=== PATIENT | female | born 1990 | race American Indian/Alaskan Native ===

== ENCOUNTER 2017-02-06 12:16 | Emergency (ER) | payer SELFPAY ==
[2017-02-06 14:59] LABS: Bacteria,Urine 1+ /HPF (Negative); Bilirubin,Urine NEG (Negative); Blood,Urine NEG (Negative); Ketones,Urine NEG (Negative); Leukocyte Esterase,Urine NEG (Negative); Mucus,Urine 1+ /HPF; Nitrite,Urine NEG (Negative); Protein,Urine <15 mg/dL mg/dL (Negative); Urobilinogen,Urine < 2.0 mg/dL (<2.0); WBC,Urine < 1.0 /HPF (0.0-6.0)
[2017-02-06] MEDS ORDERED: ZITHROMAX PO ONE (18:31)
[2017-02-06] MEDS ORDERED: XYLOCAINE 1% MPF 5 mL INFILTRATI ONE (18:31)
[2017-02-06] MEDS ORDERED: ROCEPHIN IM ONE (18:31)
--- NOTE | 2017-02-06 20:16 | Emergency Department Report ---
Entered by NACHO GAFFNEY, acting as scribe for JIN PETERSON PA. ED Female HPI - General Chief complaint: Urogenital-Female Stated complaint: POSS UTI Source: patient Mode of arrival: Ambulatory Limitations: No Limitations - History of Present Illness Initial comments: 26 year old female presents to the ED for evaluation of lower abdominal pain and associated urinary frequency and vaginal discharge for 2 weeks. She reports abdominal pain with urination. She also notes small amount of vaginal bleeding today but indicates it could be her normal menstrual bleeding. Patient reports only 1 sexual partner in previous month but notes she does not use protection with partner. Patient was seen at a clinic after initial onset; reports she was diagnosed and treated for bacterial vaginosis. Denies fever, chills, nausea, and vomiting. MD Complaint: vaginal discharge, other (urinary frequency, suprapubic abdominal pain) Onset/Timin -: week(s) Location: suprapubic Severity: moderate Consistency: constant Improves with: none Worsens with: urination Are you Now?: No Associated Symptoms: vaginal discharge, vaginal bleeding (small amount today, possible normal menstrual cycle), abdominal pain (suprapubic). denies: nausea/ vomiting, fever/chills, dysuria, hematuria - Related Data Sexually active: Yes (1 sexual partner in last month, does not use protection with partner) Previous Rx's Medication Instructions Recorded Last Taken Type Acetaminophen/Codeine 1 tab PO QHS PRN #4 tab 01/15/15 Unknown Rx [Acetaminophen-Codeine #3 TAB] Benzocaine [Orajel Liquid 20%] 1 ml MM Q6HR #1 bottle 01/15/15 Unknown Rx Ibuprofen [Motrin] 800 mg PO Q8H PRN #20 tablet 01/15/15 Unknown Rx Penicillin Vk [Veetids TAB] 500 mg PO QID #40 tablet 01/15/15 Unknown Rx Fluticasone [Flonase] 1 spray NS QDAY #1 bottle 09/06/15 Unknown Rx Ibuprofen [Motrin 800 MG tab] 800 mg PO Q8HR PRN #30 tablet 09/06/15 Unknown Rx guaiFENesin/CODEINE [Robitussin AC] 5 ml PO Q6HR #120 ml 09/06/15 Unknown Rx Allergies Allergy/AdvReac Type Severity Reaction Status Date / Time No Known Allergies Allergy Verified 09/06/15 12:41 ED Review of Systems Comment: All other systems reviewed and negative Constitutional: denies: chills, fever Gastrointestinal: abdominal pain (suprapubic). denies: nausea, vomiting Genitourinary: frequency, discharge, other (vaginal bleeding). denies: dysuria , hematuria ED Past Medical Hx - Past Medical History Previous Medical History?: No - Surgical History Past Surgical History?: No - Social History Smoking Status: Never Smoker Substance Use Type: Non Opiate Pain - Medications Home Medications: Home Medications Medication Instructions Recorded Confirmed Last Taken Type Acetaminophen/Codeine 1 tab PO QHS PRN #4 tab 01/15/15 Unknown Rx [Acetaminophen-Codeine #3 TAB] Benzocaine [Orajel Liquid 20%] 1 ml MM Q6HR #1 bottle 01/15/15 Unknown Rx Ibuprofen [Motrin] 800 mg PO Q8H PRN #20 tablet 01/15/15 Unknown Rx Penicillin Vk [Veetids TAB] 500 mg PO QID #40 tablet 01/15/15 Unknown Rx Fluticasone [Flonase] 1 spray NS QDAY #1 bottle 09/06/15 Unknown Rx Ibuprofen [Motrin 800 MG tab] 800 mg PO Q8HR PRN #30 tablet 09/06/15 Unknown Rx guaiFENesin/CODEINE [Robitussin AC] 5 ml PO Q6HR #120 ml 09/06/15 Unknown Rx ED Physical Exam - General Limitations: No Limitations General appearance: alert, in no apparent distress - Head Head exam: Present: atraumatic, normocephalic - GI/Abdominal GI/Abdominal exam: Present: soft. Absent: distended, tenderness, guarding, rebound - External exam: Present: normal external exam. Absent: lesions Speculum exam: Present: vaginal bleeding. Absent: vaginal discharge Bi-manual exam: Present: cervical motion tendernes (mild anterior cervical motion tenderness), other (roll scale man present during exam). Absent: adnexal tenderness, adnexal mass, uterine enlargement, uterine tenderness - Neurological Exam Neurological exam: Present: alert, oriented X3 - Psychiatric Psychiatric exam: Present: normal affect, normal mood - Skin Skin exam: Present: warm, dry, intact. Absent: rash ED Course Vital Signs 02/06/17 12:28 Temperature 97.9 F Pulse Rate 98 H Respiratory 18 Rate Blood Pressure 121/72 O2 Sat by Pulse 100 Oximetry ED Disposition Clinical Impression: Urinary frequency, Vaginitis Disposition: DISCHARGED TO HOME OR SELFCARE Is pt being admited?: No Does the pt Need Aspirin: No Condition: Stable Instructions: Dysuria (ED) Additional Instructions: Please drink plenty of fluids follow up with her primary care provider he can take Tylenol or Motrin for pain. Referrals: PRIMARY CARE, [Primary Care Provider] - 3-5 Days Forms: Work/School Release Form(ED) This documentation as recorded by the GULSHAN mays REBEKAH,accurately reflects the service I personally performed and the decisions made by me,JIN PETERSON PA.
[2017-02-06 21:21] VITALS: BP 124/87
== END 2017-02-06 20:12 | disposition home or self-care (01) ==
LOC: ED 12:16
DX: R35.0 Frequency of micturition (principal); N76.0 Acute vaginitis
CPT/HCPCS: 81001; 81025; 87210; 87591; 96372; 99284; J0696

== ENCOUNTER 2017-12-12 05:08 | Emergency (ER) | payer SELFPAY ==
[2017-12-12 06:55] LABS: Basophils % (Auto) 0.5 % (0.0-1.8); Eosinophils % (Auto) 0.3 % (0.0-4.3); Hematocrit 38.3 % (30.3-42.9); Hemoglobin 12.4 gm/dl (10.1-14.3); Lymphocytes # (Auto) 1.6 K/mm3 (1.2-5.4); Mean Corpuscular HGB Conc 32 % (30-34); Mean Corpuscular Hemoglobin 27 pg (28-32); Mean Corpuscular Volume 84 fl (79-97); Monocytes # (Auto) 0.7 K/mm3 (0.0-0.8); Monocytes % (Auto) 9.5 % (0.0-7.3); Platelet Count 327 K/mm3 (140-440); Red Blood Count 4.59 M/mm3 (3.65-5.03); Red Cell Distribution Width 16.3 % (13.2-15.2)
[2017-12-12 07:17] LABS: Alanine Aminotransferase 11 units/L (7-56); Albumin 4.1 g/dL (3.9-5); BUN/Creatinine Ratio 14; Blood Urea Nitrogen 11 mg/dL (7-17); Hemolysis Index 11
[2017-12-12 08:21] LABS: Color,Urine Yellow (Yellow)
[2017-12-12 08:22] LABS: Bilirubin,Urine NEG (Negative); Blood,Urine NEG (Negative); Mucus,Urine 2+ /HPF; Nitrite,Urine NEG (Negative); Protein,Urine <15 mg/dL mg/dL (Negative)
[2017-12-12 19:47] LABS: HCG Qualitative,Urine Negative (Negative)
[2017-12-12] MEDS ORDERED: NACL 0.9% 1000 ML 1,000 ML IV ONE (20:01)
--- NOTE | 2017-12-12 20:06 | Emergency Department Report ---
ED Dizziness HPI - General Chief Complaint: Dizziness Stated Complaint: DIZZINESS Time Seen by Provider: 12/12/17 19:14 Source: patient Mode of arrival: Ambulatory Limitations: No Limitations - History of Present Illness Initial Comments: 27 year old female with no significant past medical or surgical history presents to the hospital complaining waking up at 4 AM with dizziness. Patient felt lightheaded like she was on a pass out. As per triage she complained of chills and fever but she denies upon my history taking. She states she did have recent URI symptoms that has since improved and does report some decreased by mouth intake. She denies chest pain, shortness of breath, nausea, vomiting, diarrhea, abdominal pain, or dysuria. - Related Data Previous Rx's Medication Instructions Recorded Last Taken Type Acetaminophen/Codeine 1 tab PO QHS PRN #4 tab 01/15/15 Unknown Rx [Acetaminophen-Codeine #3 TAB] Benzocaine [Orajel Liquid 20%] 1 ml MM Q6HR #1 bottle 01/15/15 Unknown Rx Ibuprofen [Motrin] 800 mg PO Q8H PRN #20 tablet 01/15/15 Unknown Rx Penicillin Vk [Veetids TAB] 500 mg PO QID #40 tablet 01/15/15 Unknown Rx Fluticasone [Flonase] 1 spray NS QDAY #1 bottle 09/06/15 Unknown Rx Ibuprofen [Motrin 800 MG tab] 800 mg PO Q8HR PRN #30 tablet 09/06/15 Unknown Rx guaiFENesin/CODEINE [Robitussin AC] 5 ml PO Q6HR #120 ml 09/06/15 Unknown Rx Allergies Allergy/AdvReac Type Severity Reaction Status Date / Time No Known Allergies Allergy Verified 09/06/15 12:41 ED Review of Systems ROS: Stated complaint: DIZZINESS Other details as noted in HPI Comment: All other systems reviewed and negative Other: Constitutional: No fevers chills Eyes: No eye pain visual changes ENT: No ear pain or throat pain Neck: Denies pain Respiratory: Denies cough wheezing shortness of breath Cardiovascular: Denies chest pain, palpitations GI: Denies abdominal pain, nausea, vomiting, diarrhea : Denies dysuria Skin: Denies rash, lesions, erythema Neurologic: Denies headache, numbness, weakness Psychiatric: Denies suicidal ideation, hallucinations ED Past Medical Hx - Past Medical History Previous Medical History?: No - Surgical History Past Surgical History?: No - Social History Smoking Status: Never Smoker Substance Use Type: None - Medications Home Medications: Home Medications Medication Instructions Recorded Confirmed Last Taken Type Acetaminophen/Codeine 1 tab PO QHS PRN #4 tab 01/15/15 Unknown Rx [Acetaminophen-Codeine #3 TAB] Benzocaine [Orajel Liquid 20%] 1 ml MM Q6HR #1 bottle 01/15/15 Unknown Rx Ibuprofen [Motrin] 800 mg PO Q8H PRN #20 tablet 01/15/15 Unknown Rx Penicillin Vk [Veetids TAB] 500 mg PO QID #40 tablet 01/15/15 Unknown Rx Fluticasone [Flonase] 1 spray NS QDAY #1 bottle 09/06/15 Unknown Rx Ibuprofen [Motrin 800 MG tab] 800 mg PO Q8HR PRN #30 tablet 09/06/15 Unknown Rx guaiFENesin/CODEINE [Robitussin AC] 5 ml PO Q6HR #120 ml 09/06/15 Unknown Rx ED Physical Exam - General Limitations: No Limitations - Other Other exam information: General: No limitations, patient is alert in no acute distress Head exam: Atraumatic, normocephalic Eyes exam: Normal appearance ENT: Moist mucous membrane Neck exam: Normal inspection, full range of motion, no meningismus nontender Respiratory exam: Clear to auscultation bilateral, no wheezes, rales, crackles Cardiovascular: Normal rate and rhythm, normal heart sounds Abdomen: Soft, nondistended, and nontender, with normal bowel sounds, no rebound, or guarding Extremity: Full range of motion normal inspection no deformity Back: Normal Inspection, full range of motion, no tenderness Neurologic: Alert, oriented x3, cranial nerves intact, no motor or sensory deficit Psychiatric: normal affect, normal mood Skin: Warm, dry, intact ED Course Vital Signs 12/12/17 12/12/17 12/12/17 05:30 05:40 17:01 Temperature 97.7 F 97.7 F 98.1 F Pulse Rate 89 83 90 Respiratory 18 17 18 Rate Blood Pressure 126/83 126/83 Blood Pressure 134/78 [Right] O2 Sat by Pulse 100 99 98 Oximetry - Reevaluation(s) Reevaluation #1: 12/12/17 22:01 Patient received 1 L normal saline even with orthostatics being negative. When questioned about how she fell patient states she just feels weak. There are no focal deficits. There are no acute laboratory or vital signs abnormality with exception of mild elevation in TSH. Follow-up will be recommended ED Medical Decision Making - Lab Data Result diagrams: 12/12/17 06:39 12/12/17 06:39 Lab Results 12/12/17 12/12/17 12/12/17 Range/Units 06:39 06:39 06:39 WBC 7.5 (4.5-11.0) K/mm3 RBC 4.59 (3.65-5.03) M/mm3 Hgb 12.4 (10.1-14.3) gm/dl Hct 38.3 (30.3-42.9) % MCV 84 (79-97) fl MCH 27 L (28-32) pg MCHC 32 (30-34) % RDW 16.3 H (13.2-15.2) % Plt Count 327 (140-440) K/mm3 Lymph % (Auto) 21.0 (13.4-35.0) % [place] % (Auto) 9.5 H (0.0-7.3) % Eos % (Auto) 0.3 (0.0-4.3) % Baso % (Auto) 0.5 (0.0-1.8) % Lymph # 1.6 (1.2-5.4) K/mm3 [place] # 0.7 (0.0-0.8) K/mm3 Eos # 0.0 (0.0-0.4) K/mm3 Baso # 0.0 (0.0-0.1) K/mm3 Seg Neutrophils % 68.7 (40.0-70.0) % Seg Neutrophils # 5.2 (1.8-7.7) K/mm3 Sodium 138 (137-145) mmol/L Potassium 4.2 (3.6-5.0) mmol/L Chloride 99.7 (98-107) mmol/L Carbon Dioxide 24 (22-30) mmol/L Anion Gap 19 mmol/L BUN 11 (7-17) mg/dL Creatinine 0.8 (0.7-1.2) mg/dL Estimated GFR > 60 ml/min BUN/Creatinine Ratio 14 % Glucose 107 H (65-100) mg/dL Calcium 9.0 (8.4-10.2) mg/dL Total Bilirubin < 0.20 (0.1-1.2) mg/dL AST 12 (5-40) units/L ALT 11 (7-56) units/L Alkaline Phosphatase 85 (35-129) units/L Total Protein 7.7 (6.3-8.2) g/dL Albumin 4.1 (3.9-5) g/dL Albumin/Globulin Ratio 1.1 % TSH 5.030 H (0.270-4.200) mlU/mL Free T4 (0.76-1.46) ng/dL Thyroxine (T4) (4.0-12.0) ug/dL Urine Color (Yellow) Urine Turbidity (Clear) Urine pH (5.0-7.0) Ur Specific [place] (1.003-1.030) Urine Protein (Negative) mg/dL Urine Glucose (UA) (Negative) mg/dL Urine Ketones (Negative) mg/dL Urine Blood (Negative) Urine Nitrite (Negative) Urine Bilirubin (Negative) Urine Urobilinogen (<2.0) mg/dL Ur Leukocyte Esterase (Negative) Urine WBC (Auto) (0.0-6.0) /HPF Urine RBC (Auto) (0.0-6.0) /HPF U Epithel Cells (Auto) (0-13.0) /HPF Urine Mucus /HPF Urine HCG, Qual (Negative) 12/12/17 12/12/17 12/12/17 Range/Units 06:49 06:49 07:20 WBC (4.5-11.0) K/mm3 RBC (3.65-5.03) M/mm3 Hgb (10.1-14.3) gm/dl Hct (30.3-42.9) % MCV (79-97) fl MCH (28-32) pg MCHC (30-34) % RDW (13.2-15.2) % Plt Count (140-440) K/mm3 Lymph % (Auto) (13.4-35.0) % [place] % (Auto) (0.0-7.3) % Eos % (Auto) (0.0-4.3) % Baso % (Auto) (0.0-1.8) % Lymph # (1.2-5.4) K/mm3 [place] # (0.0-0.8) K/mm3 Eos # (0.0-0.4) K/mm3 Baso # (0.0-0.1) K/mm3 Seg Neutrophils % (40.0-70.0) % Seg Neutrophils # (1.8-7.7) K/mm3 Sodium (137-145) mmol/L Potassium (3.6-5.0) mmol/L Chloride (98-107) mmol/L Carbon Dioxide (22-30) mmol/L Anion Gap mmol/L BUN (7-17) mg/dL Creatinine (0.7-1.2) mg/dL Estimated GFR ml/min BUN/Creatinine Ratio % Glucose (65-100) mg/dL Calcium (8.4-10.2) mg/dL Total Bilirubin (0.1-1.2) mg/dL AST (5-40) units/L ALT (7-56) units/L Alkaline Phosphatase (35-129) units/L Total Protein (6.3-8.2) g/dL Albumin (3.9-5) g/dL Albumin/Globulin Ratio % TSH (0.270-4.200) mlU/mL Free T4 0.99 (0.76-1.46) ng/dL Thyroxine (T4) 6.6 (4.0-12.0) ug/dL Urine Color Yellow (Yellow) Urine Turbidity Clear (Clear) Urine pH 6.0 (5.0-7.0) Ur Specific [place] 1.024 (1.003-1.030) Urine Protein <15 mg/dl (Negative) mg/dL Urine Glucose (UA) Neg (Negative) mg/dL Urine Ketones Neg (Negative) mg/dL Urine Blood Neg (Negative) Urine Nitrite Neg (Negative) Urine Bilirubin Neg (Negative) Urine Urobilinogen 2.0 (<2.0) mg/dL Ur Leukocyte Esterase Tr (Negative) Urine WBC (Auto) 1.0 (0.0-6.0) /HPF Urine RBC (Auto) 2.0 (0.0-6.0) /HPF U Epithel Cells (Auto) 4.0 (0-13.0) /HPF Urine Mucus 2+ /HPF Urine HCG, Qual (Negative) 12/12/17 Range/Units 07:23 WBC (4.5-11.0) K/mm3 RBC (3.65-5.03) M/mm3 Hgb (10.1-14.3) gm/dl Hct (30.3-42.9) % MCV (79-97) fl MCH (28-32) pg MCHC (30-34) % RDW (13.2-15.2) % Plt Count (140-440) K/mm3 Lymph % (Auto) (13.4-35.0) % [place] % (Auto) (0.0-7.3) % Eos % (Auto) (0.0-4.3) % Baso % (Auto) (0.0-1.8) % Lymph # (1.2-5.4) K/mm3 [place] # (0.0-0.8) K/mm3 Eos # (0.0-0.4) K/mm3 Baso # (0.0-0.1) K/mm3 Seg Neutrophils % (40.0-70.0) % Seg Neutrophils # (1.8-7.7) K/mm3 Sodium (137-145) mmol/L Potassium (3.6-5.0) mmol/L Chloride (98-107) mmol/L Carbon Dioxide (22-30) mmol/L Anion Gap mmol/L BUN (7-17) mg/dL Creatinine (0.7-1.2) mg/dL Estimated GFR ml/min BUN/Creatinine Ratio % Glucose (65-100) mg/dL Calcium (8.4-10.2) mg/dL Total Bilirubin (0.1-1.2) mg/dL AST (5-40) units/L ALT (7-56) units/L Alkaline Phosphatase (35-129) units/L Total Protein (6.3-8.2) g/dL Albumin (3.9-5) g/dL Albumin/Globulin Ratio % TSH (0.270-4.200) mlU/mL Free T4 (0.76-1.46) ng/dL Thyroxine (T4) (4.0-12.0) ug/dL Urine Color (Yellow) Urine Turbidity (Clear) Urine pH (5.0-7.0) Ur Specific [place] (1.003-1.030) Urine Protein (Negative) mg/dL Urine Glucose (UA) (Negative) mg/dL Urine Ketones (Negative) mg/dL Urine Blood (Negative) Urine Nitrite (Negative) Urine Bilirubin (Negative) Urine Urobilinogen (<2.0) mg/dL Ur Leukocyte Esterase (Negative) Urine WBC (Auto) (0.0-6.0) /HPF Urine RBC (Auto) (0.0-6.0) /HPF U Epithel Cells (Auto) (0-13.0) /HPF Urine Mucus /HPF Urine HCG, Qual Negative (Negative) - EKG Data -: EKG Interpreted by Me (83) EKG shows normal: sinus rhythm (88), axis (57), ST-T waves (no stemi/t wave abnl ) Rate: normal (88) - EKG Data When compared to previous EKG there are: previous EKG unavailable - Medical Decision Making Dizziness Report of more of a lightheadedness/near syncopal feeling. Orthostatics negative Symptoms improved in the ED even prior to initiation of treatment A liter of normal saline provided Labs and UA unremarkable with exception of TSH negative Elevated TSH TSH is mildly elevated above threshold for hypothyroidism and diagnosed Patient has normal T4 and free T4 levels No signs of bradycardia or hypotension Patient be encouraged to follow-up for further diagnosis and treatment with a primary care doctor - Differential Diagnosis anemia, dehydration, , viral syndrome Critical Care Time: No Critical care attestation.: If time is entered above; I have spent that time in minutes in the direct care of this critically ill patient, excluding procedure time. ED Disposition Clinical Impression: Lightheaded, Viral illness, Elevated TSH Disposition: DC-01 TO HOME OR SELFCARE Is pt being admited?: No Does the pt Need Aspirin: No Condition: Stable Instructions: Lightheadedness (ED), Hypothyroidism (ED), Viral Syndrome (ED) Additional Instructions: Follow-up with a primary care doctor for further workup of your abnormal thyroid function tests. Continue to drink plenty of fluids. Follow-up with a primary care doctor also for further management of your symptoms. Return if symptoms worsen. Referrals: BOYD LEGER MD [Primary Care Provider] - 3-5 Days [facility] [Provider Group] - 3-5 Days Time of Disposition: 22:03
[2017-12-12] MEDS ORDERED: ANTIVERT PO ONE (22:35)
[2017-12-12 23:44] VITALS: BP 136/93
--- NOTE | 2017-12-13 00:13 | XRay Report ---
FINAL REPORT PROCEDURE: XR CHEST 1V AP TECHNIQUE: Chest radiograph anteroposterior view. CPT 37937 HISTORY: gen weakness COMPARISON: No prior studies are available for comparison. FINDINGS: Heart: Normal. Mediastinum/Vessels: Normal. Lungs/Pleural space: Normal. Bony thorax: No acute osseous abnormality. Life support devices: None. IMPRESSION: No acute cardiopulmonary abnormality.
== END 2017-12-13 00:18 | disposition home or self-care (01) ==
LOC: ED 05:08
DX: B34.9 Viral infection, unspecified (principal); R79.9 Abnormal finding of blood chemistry, unspecified
CPT/HCPCS: 36415; 71045; 80053; 81001; 81025; 82550; 83735; 84436; 84439; 84443; 85025; 87400; 93005; 93010; 96360; 99284; J7030